=== PATIENT | female | born 1995 | race Caucasian/White ===

== ENCOUNTER 2020-04-10 13:43 | Emergency (ER) | payer SELFPAY ==
[2020-04-10] MEDS ORDERED: Sodium Chloride 0.9% 10 ML Syringe FLUSH PRN (14:10)
[2020-04-10] MEDS ORDERED: Ondansetron 4 MG/2 ML SDV IVPUSH ONE (14:11)
--- NOTE | 2020-04-10 14:17 | EDM.PDOC ---
ED HPI GENERAL MEDICAL PROBLEM - General Chief Complaint: ENT Problem Stated Complaint: SORE THROAT/SHAKY Time Seen by Provider: 04/10/20 13:58 Source of Information: Reports: Patient, RN Notes Reviewed History Limitations: Reports: No Limitations - History of Present Illness INITIAL COMMENTS - FREE TEXT/NARRATIVE: Patient is a 24-year-old female who presents to the ED for a few different symptoms. The patient states that around 5 days ago, she developed a sore throat, and some nausea and vomiting. Patient states that she is not really been able to eat much, as she states foods do not really taste good to her. She states that she has had a cough, that is not due to allergies, generalized fatigue, lightheadedness/dizziness, headache to the right side of her head as we ll. Patient recently traveled to [place] from [place], on a flight that connected in [place]. Patient's not been tested for coronavirus. She states no one else is sick in her household, and states that she does not really recount anyone being sick around her when she was traveling. The patient states that she did take some ibuprofen last night and this morning, and it did help with her symptoms a little bit. She denies any other past medical history. Throat Pain Score (Numeric/FACES): 6 - Related Data Allergies Allergy/AdvReac Type Severity Reaction Status Date / Time No Known Allergies Allergy Verified 04/10/20 13:57 Home Meds: Home Meds . [No Known Home Meds] 04/10/20 [History] Past Medical History - Past Health History Medical/Surgical History: Denies Medical/Surgical History Social & Family History - Tobacco Use Smoking Status *Q: Never Smoker - Caffeine Use Caffeine Use: Reports: Tea - Recreational Drug Use Recreational Drug Use: No ED ROS ENT - Review of Systems Review Of Systems: Comprehensive ROS is negative, except as noted in HPI. ED EXAM, ENT - Physical Exam Exam: See Below Exam Limited By: No Limitations General Appearance: Alert, WD/WN, No Apparent Distress, Anxious (pt is somewhat tearful, and anxious) Eye Exam: Bilateral Eye: EOMI, Normal Inspection, PERRL Ears: Normal External Exam, Normal Canal, Hearing Grossly Normal, Normal TMs Nose: Normal Inspection, Normal Mucousa, No Blood Mouth/Throat: Normal Inspection, Normal Gums, Normal Lips, Normal Oropharynx, Normal Teeth Head: Atraumatic, Normocephalic Neck: Normal Inspection Respiratory/Chest: No Respiratory Distress, Lungs Clear, Normal Breath Sounds, No Accessory Muscle Use, Chest Non-Tender Cardiovascular: Normal Peripheral Pulses, Regular Rate, Rhythm, No Murmur GI/Abdominal: Normal Bowel Sounds, Soft, Non-Tender, No Distention, No Mass Extremities: Normal Inspection, Normal Capillary Refill Neurological: Alert, Oriented, Normal Cognition, No Motor/Sensory Deficits Psychiatric: Tearful (unsure as to why the patient is tearful, but appears anxious to be here) Skin: Warm, Dry, Intact, Normal Color, No Rash Course - Vital Signs Last Recorded V/S: Last Vital Signs Temp 97.9 F 04/10/20 14:01 Pulse 72 04/10/20 14:01 Resp 121 H 04/10/20 14:01 BP 121/91 H 04/10/20 14:01 Pulse Ox - Orders/Labs/Meds Orders: Active Orders 24 hr Category Date Time Status Peripheral IV Care [RC] . DIRECTED Care 04/10/20 14:10 Ordered CORONAVIRUS COVID-19 PCR PHL Routine Lab 04/10/20 14:10 Ordered CULTURE STREP A CONFIRMATION [RM] Stat Lab 04/10/20 14:35 Results STREP SCRN A RAPID W CULT CONF [RM] Stat Lab 04/10/20 14:10 Ordered Sodium Chloride 0.9% [Saline Flush] Med 04/10/20 14:10 Active 10 ml FLUSH ASDIRECTED PRN Peripheral IV Insertion Adult [OM.PC] Routine Oth 04/10/20 14:10 Ordered Medication Orders Sodium Chloride (Saline Flush) 10 ml FLUSH ASDIRECTED PRN PRN Reason: Keep Vein Open Last Admin: 04/10/20 14:25 Dose: 10 ml Documented by: ANGIE Labs: Laboratory Tests 04/10/20 04/10/20 04/10/20 Range/Units 14:35 14:35 14:35 WBC 9.20 (3.98-10.04) K/mm3 RBC 4.85 (3.98-5.22) M/mm3 Hgb 14.2 (11.2-15.7) gm/dl Hct 43.8 (34.1-44.9) % MCV 90.3 (79.4-94.8) fl MCH 29.3 (25.6-32.2) pg MCHC 32.4 (32.2-35.5) g/dl RDW Std Deviation 45.2 (36.4-46.3) fL Plt Count 264 (182-369) K/mm3 MPV 10.2 (9.4-12.3) fl Neut % (Auto) 62.8 (34.0-71.1) % Lymph % (Auto) 24.7 (19.3-51.7) % [place] % (Auto) 9.6 (4.7-12.5) % Eos % (Auto) 2.0 (0.7-5.8) Baso % (Auto) 0.5 (0.1-1.2) % Neut # (Auto) 5.78 (1.56-6.13) K/mm3 Lymph # (Auto) 2.27 (1.18-3.74) K/mm3 [place] # (Auto) 0.88 H (0.24-0.36) K/mm3 Eos # (Auto) 0.18 (0.04-0.36) K/mm3 Baso # (Auto) 0.05 (0.01-0.08) K/mm3 Sodium 139 (136-145) mEq/L Potassium 3.6 (3.5-5.1) mEq/L Chloride 104 (98-107) mEq/L Carbon Dioxide 25 (21-32) mEq/L Anion Gap 13.6 (5-15) BUN 22 H (7-18) mg/dL Creatinine 0.8 (0.55-1.02) mg/dL Est Cr Clr Drug Dosing 88.15 mL/min Estimated GFR (MDRD) > 60 (>60) mL/min BUN/Creatinine Ratio 27.5 H (14-18) Glucose 93 (74-106) mg/dL Calcium 9.0 (8.5-10.1) mg/dL Magnesium 2.1 (1.8-2.4) mg/dl Total Bilirubin 0.4 (0.2-1.0) mg/dL AST 24 (15-37) U/L ALT 65 H (14-59) U/L Alkaline Phosphatase 88 (46-116) U/L Total Protein 7.6 (6.4-8.2) g/dl Albumin 3.7 (3.4-5.0) g/dl Globulin 3.9 gm/dL Albumin/Globulin Ratio 1.0 (1-2) HCG, Qual Negative (NEGATIVE) Meds: Medications Generic Name Dose Route Start Last Admin Trade Name Freq PRN Reason Stop Dose Admin Sodium Chloride 10 ml 04/10/20 14:10 04/10/20 14:25 Saline Flush FLUSH 10 ml ASDIRECTED PRN Administration Keep Vein Open Discontinued Medications Generic Name Dose Route Start Last Admin Trade Name Freq PRN Reason Stop Dose Admin Ondansetron HCl 4 mg 04/10/20 14:11 04/10/20 14:25 Zofran IVPUSH 04/10/20 14:12 4 mg ONETIME ONE Administration - Re-Assessments/Exams Free Text/Narrative Re-Assessment/Exam: 04/10/20 14:17 Patient presents to the ED for evaluation of her sore throat and other complaints. Patient will have a state coronavirus test performed. Along with IV, IV fluids, IV Zofran, CBC, CMP, magnesium, strep screen, and a qualitative hCG to rule out of sorts. Patient's not a very great historian as she did not give much for details on why she was nauseous and vomiting, unclear what is causing some of her symptoms at this time. There is low suspicion of COVID-19 at this time. Patient will nonetheless be put in isolation. 04/10/20 15:41 Patient's laboratory evaluation is very unrevealing and unremarkable. She will be discharged home with general recommendations, and have her self quarantine until she gets her COVID results back. Rapid strep screen is negative. Will be sent for culture for confirmation. Patient is also not . Departure - Departure Time of Disposition: 15:42 Disposition: Home, Self-Care 01 Condition: Good Clinical Impression: Suspected 2019 novel coronavirus infection Pharyngitis Qualifiers: Pharyngitis/tonsillitis etiology: unspecified etiology Qualified Code(s): J02.9 - Acute pharyngitis, unspecified - Discharge Information *PRESCRIPTION DRUG MONITORING PROGRAM REVIEWED*: No *COPY OF PRESCRIPTION DRUG MONITORING REPORT IN PATIENT CORONA: No Instructions: Infection Prevention in the Home, Sore Throat, [id number] Referrals: PCP,Not In Area [Primary Care Provider] - Forms: ED Department Discharge Additional Instructions: You were seen in the ER today for ongoing and/or worsening respiratory symptoms. At this time we did test you for COVID-19. We ask that you self-quarantine until you receive your results from the state. You have been given a work note to reflect this. Swabs are sent from this facility on a daily basis, at 2:30 PM, you should expect up to 3-5 business days for positive or negative results. However you may receive results earlier than this. We are doing our best to call as soon as we get results from the [place] dept. of Health. Please try to increase your oral fluid intake, and eat multiple small meals throughout the day, to keep yourself healthy. You may take 500 mg Tylenol or 600mg ibuprofen every hours 6 hours for pain/fever relief. Do not exceed 4000 mg Tylenol or 3200mg ibuprofen in a 24- hour time span. Your rapid strep screen was negative, this to be sent for culture for confirmation, you will be called in the next 48 hours if you should require antibiotics. A prescription will be sent if this is required. You were also given a prescription for Zofran, please take 1 tablet dissolvable under your tongue every 8 hours as needed for further nausea. If you find that your throat is still very sore, I recommend you stick to a clear liquid diet for soft diet and advance to bland as tolerated when the sore throat seems to resolve itself. Sepsis Event Note (ED) - Evaluation Sepsis Screening Result: No Definite Risk - Focused Exam Vital Signs: Vital Signs Temp Pulse Resp BP 04/10/20 14:01 97.9 F 72 121 H 121/91 H - My Orders Last 24 Hours: My Active Orders 04/10/20 14:10 Peripheral IV Care [RC] . DIRECTED CORONAVIRUS COVID-19 PCR PHL Routine STREP SCRN A RAPID W CULT CONF [RM] Stat Sodium Chloride 0.9% [Saline Flush] 10 ml FLUSH ASDIRECTED PRN Peripheral IV Insertion Adult [OM.PC] Routine 04/10/20 14:35 CULTURE STREP A CONFIRMATION [RM] Stat - Assessment/Plan Last 24 Hours: My Active Orders 04/10/20 14:10 Peripheral IV Care [RC] . DIRECTED CORONAVIRUS COVID-19 PCR PHL Routine STREP SCRN A RAPID W CULT CONF [RM] Stat Sodium Chloride 0.9% [Saline Flush] 10 ml FLUSH ASDIRECTED PRN Peripheral IV Insertion Adult [OM.PC] Routine 04/10/20 14:35 CULTURE STREP A CONFIRMATION [RM] Stat
== END 2020-04-10 16:30 | disposition home or self-care (01) ==
LOC: JD.ED 13:43
DX: J02.9 Acute pharyngitis, unspecified (principal); Z20.828 Contact with and (suspected) exposure to other viral communicable diseases
CPT/HCPCS: 36415; 80053; 83735; 84703; 85025; 87081; 87430; 87635; 96374; 99284; J2405; 99283; U0002